=== PATIENT | male | born 1965 | race African-American/Black ===

== ENCOUNTER 2019-07-13 01:05 | Emergency (ER) | payer MEDICARE, OTHER ==
[~2019-07-13] VITALS: Ht 190.5 cm; Wt 108.9 kg
--- NOTE | 2019-07-13 01:24 | Emergency Room Report ---
History of Present Illness General Chief Complaint: Lower Back Pain or Injury Source: Patient Present Illness HPI Disclaimer: Please note that this report is being documented using DRAGON technology. This can lead to erroneous entry secondary to incorrect interpretation by the dictating instrument. HPI: 54-year-old male with a history of herniated disc status post laminectomy performed at [facility] several years ago presents for evaluation of back pain. Patient states he has been in usual state of health and feeling well after his laminectomy. 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 Progressed throughout the day. He is unable to stand up straight or lay flat in bed. Notes 10/10 excruciating pain bilaterally in the lower back off the midline wrapping around to the front like a tightness and spasming. He denies any numbness, tingling or weakness in the lower extremities. His range of motion is limited due to pain in his lower back. Denies any urinary retention or fecal incontinence. Denies any saddle anesthesia. Denies any recent fevers, chills. No other trauma reported. He did have a slip and fall in January but had a CT scan performed at the [facility] showing hardware was intact. PMH: Lumbar disc disease PSH: Laminectomy Allergies: Denies Social Hx: Denies COVID-19 risk:Travel to affect: No Allergies: Coded Allergies: Pork (Verified Allergy, Unknown, 07/13/19) Review of Systems All Other Systems: negative except mentioned in HPI Physical Exam Vital Signs Date Time Temp Pulse Resp B/P (MAP) Pulse Ox O2 Delivery O2 Flow Rate FiO2 07/13/19 01:08 98.4 60 18 128/91 (103) 99 Room Air General: Awake and alert, no acute distress HEENT: NC/AT. EOMI. Resp: Normal work of breathing Skin: Intact. No abrasions, laceration or rash over the exposed skin MSK: Normal tone and bulk. Moving all extremities. No obvious deformity. Pelvis is stable. Difficulty with straight leg testing due to back pain. Neuro: Awake and alert. Mentating appropriately. Sensation is intact over the dermatomes of lower extremities bilaterally. Spine: Surgical scars in the lower lumbar region are clean dry and intact. No overlying warmth, edema, erythema or other abnormalities. No midline tenderness. There is moderate paraspinal tenderness extending laterally over the superior gluteus muscles. Medical Decision Making Diagnostic Impression: Primary Impression: Lumbar paraspinal muscle spasm Additional Impression: Lumbar strain ER Course 54-year-old male history of laminectomy for lumbar disc disease presents for evaluation of atraumatic back pain. Differential includes is not limited to lumbar strain, lower back spasm, disc herniation, peripheral neuropathy, radiculopathy. Patient is neurologically intact. No evidence of cauda equina syndrome or spinal epidural abscess. Most consistent with muscular spasm. Will treat with Toradol, prednisone, lidocaine patch, Valium and sent. Will monitor for improvement. As there is no trauma do not believe he requires emergent imaging at this time. Can advance work-up as needed. Reevaluation Time: 05:04 Last Vital Signs Date Time Temp Pulse Resp B/P (MAP) Pulse Ox O2 Delivery O2 Flow Rate FiO2 07/13/19 01:08 98.4 60 18 128/91 (103) 99 Room Air Reevaluation Impression Patient required additional doses of pain medication but his pain is now improved. He is able to ambulate safely though it is relying on a cane for extra stability at this time. He will be discharged to follow-up with a spine surgeon [facility] the [facility]. Discussed that he should return with any new or worsening symptoms. He understands and agrees with this treatment plan. Disposition: HOME, SELF-CARE Condition: Improved Scripts Acetaminophen With Codeine (T#3) (TYLENOL #3 TAB*) Y Tab 1 TAB ORAL Q4H PRN for For Pain for 3 Days, #15 TAB Prov: Margarito Ott MD 07/13/19 Lidocaine Patch* (Lidoderm Patch*) 1 Each Adh..patch 1 PATCH TOPIC DAILY, #10 PATCH 0 Refills Patch(es) may remain in place for up to 12 hours in any 24-hour period. Prov: Margarito Ott MD 07/13/19 Methocarbamol* (ROBAXIN-750*) 750 Mg Tablet 750 MG PO QID, #28 TAB 0 Refills Prov: Margarito Ott MD 07/13/19 Margarito Ott MD Jul 13, 2019 01:24
[2019-07-13 01:30] VITALS: BP 125/92
[2019-07-13] MEDS ORDERED: Methocarbamol 750mg tab ORAL ONE (01:30)
[2019-07-13] MEDS ORDERED: Ketorolac 30mg Inj IM ONE (01:30)
--- NOTE | 2019-07-13 01:30 | NUR ---
ED Nurse Note: Patient brought in by ambulance from home d/t lower back pain 10/10 aching for 2 days. Patient aao x 4 and ambulatory with steady gait. Patient reports hx of spinal issues and had laminectomy. Patient placed in gown. No acute distress noted. Addendum: 07/13/19 at 0149 by [facility] ED Nurse Note: Patient brought in by ambulance from home d/t lower back pain 10/10 aching for 2 days. 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 Patient aao x 4 and ambulatory with steady gait. Patient reports hx of spinal issues and had laminectomy September 2018. Patient placed in gown. No acute distress noted.
--- NOTE | 2019-07-13 02:14 | NUR ---
ED Nurse Note: Lidoderm patch placed on lower back, instructed patient to remove patch after 12 hours at 1414 later today. Addendum: 07/13/19 at 0223 by [facility] ED Nurse Note: Lidoderm patch placed on lower back, instructed patient to remove patch after 12 hours at 1414 later today. Patient verbalized understanding.
--- NOTE | 2019-07-13 02:24 | NUR ---
ED Nurse Note: ERMD at bedside.
[2019-07-13] MEDS ORDERED: HYDROcodone/Acetamin 5/325 tab ORAL ONE (02:30)
[2019-07-13] MEDS ORDERED: Morphine Sulfate 2mg/ml Inj(IV/IM USE ONLY) IVP ONE (03:15)
[2019-07-13] MEDS ORDERED: ROBAXIN-750750 MG PO (05:04)
[2019-07-13] MEDS ORDERED: ACETAMINOPHEN-1 EAC1 ORAL (05:04)
[2019-07-13] MEDS ORDERED: LIDODERM700 M1 TOPIC (05:04)
[2019-07-13 05:15] VITALS: BP 122/98
--- NOTE | 2019-07-13 05:15 | NUR ---
ER DISCHARGE NOTE: Patient is cleared to be discharged per ERMD, pt is aox4, on room air, with stable vital signs. pt was given dc and prescription instructions, pt was able to verbalize understanding, pt id band and iv site removed intact without complications. pt is able to ambulate with cane. pt took all belongings. pt stable upon discharge.
== END 2019-07-13 05:15 | disposition home or self-care (01) ==
LOC: EDBD 01:05 → EMR 02:17
DX: M62.830 Muscle spasm of back (principal); S39.012A Strain of muscle, fascia and tendon of lower back, initial encounter; X58.XXXA Exposure to other specified factors, initial encounter; Y92.9 Unspecified place or not applicable; Z98.890 Other specified postprocedural states
CPT/HCPCS: 96372; 96374; 99284; J1885; J2270; J7512